=== PATIENT | female | born 1995 | race Caucasian/White ===

== ENCOUNTER 2016-07-28 09:48 | Observation (INO) | payer MEDICAID ==
[2016-07-28 10:23] VITALS: BP 120/76; PULSE 112
--- NOTE | 2016-07-28 12:20 | XRAY ---
Indication: IUGR. Ultrasound biophysical profile study performed. Comparison: July 21, 2016 There is again a single viable intrauterine with heart rate 139 bpm. Four-quadrant GAIL is 11.4 cm. This was previously 12.3 cm. Largest amniotic pocket is 3.3 cm. 2 points given for breathing, movements, tone, and qualitative amniotic fluid volume. Impression: Stable total biophysical profile score 8 out of 8.
== END 2016-07-28 11:10 | disposition home or self-care (01) ==
LOC: OB 09:48
PROVIDERS: ADMIT Family Medicine; ATTEND Family Medicine
DX: Z34.03 Encounter for supervision of normal first pregnancy, third trimester (principal)
CPT/HCPCS: 59025; 76819; G0378

== ENCOUNTER 2016-08-04 10:12 | Observation (INO) | payer MEDICAID ==
[2016-08-04 10:39] VITALS: BP 115/77; PULSE 102
--- NOTE | 2016-08-04 11:29 | XRAY ---
Indication: IUGR. Ultrasound biophysical profile study performed. Comparison: July 28, 2016 There is again a single viable intrauterine with heart rate 135 bpm. Four-quadrant GAIL is 10 cm. This was previously 11.4 cm. Largest amniotic pocket is 4.2 cm. 2 points given for breathing, movements, tone, and qualitative amniotic fluid volume. Impression: Stable total biophysical profile score 8 out of 8.
== END 2016-08-04 11:25 | disposition home or self-care (01) ==
LOC: MED SURG 10:12
PROVIDERS: ADMIT Family Medicine; ATTEND Family Medicine
DX: Z34.03 Encounter for supervision of normal first pregnancy, third trimester (principal)
CPT/HCPCS: 59025; 76819; G0378

== ENCOUNTER 2016-08-10 09:37 | Observation (INO) | payer MEDICAID ==
[2016-08-10 09:59] VITALS: BP 122/66; PULSE 100
--- NOTE | 2016-08-10 11:51 | XRAY ---
Indication: IUGR. Ultrasound biophysical profile study was performed. Comparison: August 04, 2016 Again there is a single viable intrauterine . heart rate 143 bpm. Four-quadrant GAIL is 12.7 cm, previously 10.0 cm. Largest amniotic pocket measures 4.3 cm. 2 points given for breathing, movements, tone, and qualitative amniotic fluid volume. Impression: Stable total biophysical profile score 8 out of 8.
== END 2016-08-10 10:50 | disposition home or self-care (01) ==
LOC: OB 09:37
PROVIDERS: ADMIT Family Medicine; ATTEND Family Medicine
DX: Z34.03 Encounter for supervision of normal first pregnancy, third trimester (principal)
CPT/HCPCS: 59025; 76819; 81000; G0378

== ENCOUNTER 2016-08-14 20:09 | Inpatient (IN) | payer BC, MEDICAID ==
[2016-08-14] MEDS ORDERED: BRETHINE 1 MG/ML SQ PRN (21:00)
[2016-08-14 21:50] LABS: BASOPHIL % 0.3 % (0.0-0.4); Eosinophil % 1.3 % (0.00-5.0); Granulocytes % 66.9 % (36.0-66.0); Lymphocytes % 22.5 % (24.0-44.0); Mean Cell Volume 88.1 fl (78-100); Mean Corpuscular Hemoglobin 28.8 pg (26-32); Mean Platelet Volume 10.9 fl (6-9.5); Platelet Count 246 K/mm3 (150-450); Red Blood Count 3.85 M/mm3 (4.1-5.4); Red Cell Distribution Width 13.1 % (11.5-14.0); White Blood Count 11.2 K/mm3 (4.0-10.5)
[2016-08-14] MEDS ORDERED: Cervidil 10 MG VAG SCH (22:00)
[2016-08-14] MEDS ORDERED: PITOCIN 30 UNITS/ LR 500 ML 500 ML IV SCH (22:00)
[2016-08-15] MEDS: Lactated Ringers 1,000 ML IV SCH ×2 (06:22→14:14)
[2016-08-15] MEDS ORDERED: PITOCIN 30 UNITS/ LR 500 ML 500 ML IV SCH (06:30)
[2016-08-15] MEDS ORDERED: OB EPIDURAL NAROPIN/SUFENTANIL IN NACL EPIDURAL PRN (10:49)
[2016-08-15] MEDS ORDERED: Lactated Ringers 1,000 ML IV ONE (10:49)
[2016-08-15] MEDS ORDERED: Ephedrine Sulfate 50 MG/ML IV PRN (10:49)
[2016-08-15 15:31] VITALS: O2SAT 98
[2016-08-15] MEDS ORDERED: XYLOCAINE 1% HCL 20 ML MDV ONE (18:51)
[2016-08-15] MEDS ORDERED: XYLOCAINE 1% HCL 20 ML MDV IJ PRN (19:00)
[2016-08-15] MEDS ORDERED: MOTRIN 400 MG PO PRN (20:13)
[2016-08-15] MEDS ORDERED: Rhogam Plus 300 MCG IM ONE (20:13)
[2016-08-15] MEDS ORDERED: Dulcolax 10 MG SUPP PR PRN (20:13)
[2016-08-15] MEDS ORDERED: TYLENOL EXTRA STRENGTH 500 MG PO PRN (20:13)
[2016-08-15] MEDS ORDERED: M-M-R II Vaccine With Diluent SQ ONE (20:13)
[2016-08-15] MEDS ORDERED: LANSINOH 40 GM TOP PRN (20:13)
[2016-08-15] MEDS ORDERED: Anucort-HC SUPPOSITORY PR PRN (20:13)
[2016-08-15] MEDS ORDERED: Ambien 10 MG PO PRN (20:13)
[2016-08-15] MEDS ORDERED: Mylicon 80MG PO PRN (20:13)
[2016-08-15] MEDS ORDERED: Restoril 15 MG PO PRN (20:13)
[2016-08-15] MEDS ORDERED: Tylenol #3 Tablet PO PRN (20:13)
[2016-08-15] MEDS ORDERED: CORTISONE 1% CREAM TP PRN (20:13)
[2016-08-15] MEDS: TUCKS TP PRN (20:25)
[2016-08-15] MEDS: Dermoplast Spray TP PRN (20:25)
[2016-08-15] MEDS ORDERED: Nubain 10 MG/ML IV PRN (21:12)
[2016-08-15] MEDS ORDERED: BENADRYL 50 MG/ML IV PRN (21:13)
[2016-08-15] MEDS: Colace 100 MG PO SCH (22:24)
[2016-08-16 05:56] LABS: Mean Cell Volume 89.5 fl (78-100); Mean Platelet Volume 10.7 fl (6-9.5); Platelet Count 212 K/mm3 (150-450); Red Blood Count 3.44 M/mm3 (4.1-5.4); Red Cell Distribution Width 13.4 % (11.5-14.0); White Blood Count 16.6 K/mm3 (4.0-10.5)
[2016-08-16 06:04] LABS: Mean Corpuscular Hemoglobin 28.7 pg (26-32)
[2016-08-16 07:00] LABS: BAND 1 % (0.0-2.0); Eosinophil 1 % (0.00-3.0); Platelet Estimate NORMAL (NORMAL); Total Cells Counted 100
[2016-08-16] MEDS: FERREX 150 PO SCH (10:37)
[2016-08-16] MEDS: Colace 100 MG PO SCH ×2 (10:37→21:18)
[2016-08-16] MEDS: TUCKS TP PRN (21:17)
[2016-08-16] MEDS: Dermoplast Spray TP PRN (21:17)
[2016-08-17] MEDS: FERREX 150 PO SCH (10:25)
[2016-08-17] MEDS: Colace 100 MG PO SCH ×2 (10:25→21:04)
[2016-08-17 20:40] VITALS: BP 126/76; PULSE 73
== END 2016-08-17 21:35 | disposition home or self-care (01) | DRG 775 ==
LOC: OB 20:52 → OBSVTOIN 08-15 06:59
PROVIDERS: ADMIT Family Medicine; ATTEND Family Medicine
PROC: 10E0XZZ Delivery of Products of Conception, External Approach (ICD-10-PCS; principal; 2016-08-15)
PROC: 10907ZC Drainage of Amniotic Fluid, Therapeutic from Products of Conception, Via Natural or Artificial Opening (ICD-10-PCS; 2016-08-15)
DX: O80 Encounter for full-term uncomplicated delivery (principal); Z3A.39 39 weeks gestation of pregnancy; Z37.0 Single live birth
CPT/HCPCS: 01967; 36415; 80307; 85025; 87086; 90471; 90707; 94799; G0378; J1200; J2590; J2790; J2795

== ENCOUNTER 2021-12-15 08:48 | Day surgery (SDC) | payer OTHER ==
--- NOTE | 2021-12-08 09:32 | HP ---
DATE OF SURGERY: 12/15/2021 HISTORY OF PRESENT ILLNESS: The patient is a 26-year-old female presents with right upper quadrant pain radiating to her back. She states that eating makes this worse. She states that six years ago this pain started. The patient had went to the emergency room once for this. A couple of weeks ago the patient had some pain that lasted for about 24 hours. She denies nausea, vomiting or diarrhea. PAST MEDICAL HISTORY: None. PAST SURGICAL HISTORY: [place] teeth. ALLERGIES: NKDA. MEDICATIONS: None. FAMILY HISTORY: Diabetes, thyroid cancer, breast cancer, cervical cancer. SOCIAL HISTORY: Occasional alcohol. REVIEW OF SYSTEMS: CONSTITUTIONAL: Denies fever or chills. CHEST: Denies shortness of breath. CVS: Denies chest pain. ABDOMEN: Reports abdominal pain. Denies nausea, vomiting, diarrhea, constipation or rectal bleeding. PHYSICAL EXAMINATION: GENERAL: No acute distress. CHEST: Nonlabored. No shortness of breath. CVS: Regular rate and rhythm. ABDOMEN: Soft, nontender. IMPRESSION: Symptomatic cholelithiasis. PLAN: Laparoscopic cholecystectomy with Dr. Venkatesh Larios. As dictated by Afua Morales NP.
[~2021-12-15 08:48] MED LIST: Lactated Ringers 1,000 ML IV ONE; Sensorcaine 0.25% 10 ML ONE
[2021-12-15] MEDS ORDERED: Ephedrine Sulfate 50 MG/ML IJ ONE (08:49)
[2021-12-15] MEDS ORDERED: MEFOXIN 2 GM PREMIX** 2 GM/50 ML ML IV ONE (09:05)
[2021-12-15] MEDS ORDERED: Lactated Ringers 1,000 ML IV ONE (09:06)
[2021-12-15] MEDS ORDERED: Versed 2 MG/2 ML Injection IV ONE (09:14)
[2021-12-15] MEDS ORDERED: Lactated Ringers 1,000 ML IV SCH (09:30)
[2021-12-15] MEDS ORDERED: MEFOXIN 2 GM PREMIX** 2 GM/50 ML ML IV SCH (10:00)
[2021-12-15] MEDS ORDERED: DIPRIVAN 200 MG/20 ML IV ONE ×2 (10:15→10:41)
[2021-12-15] MEDS ORDERED: Quelicin Fliptop 200 MG/10 ML ONE ×2 (10:41→11:07)
[2021-12-15] MEDS ORDERED: Zemuron 100 MG/10 ML ONE (10:41)
[2021-12-15] MEDS ORDERED: Xylocaine-Mpf 2% 5 Ml Vial ONE (10:41)
[2021-12-15] MEDS ORDERED: Decadron 4 MG INJ ONE (10:41)
[2021-12-15] MEDS ORDERED: Zofran 4 MG/2 ML VIAL ONE (10:41)
[2021-12-15] MEDS ORDERED: SUBLIMAZE 100 MCG/2 ML ONE ×3 (10:44→12:19)
[2021-12-15] MEDS ORDERED: OFIRMEV 100 ML IV ONE (11:00)
[2021-12-15] MEDS ORDERED: Pre-Attached Lta Kit TP ONE (11:00)
[2021-12-15] MEDS ORDERED: DEXMEDETOMIDINE 80 MCG/20ML-NS IV ONE (11:00)
[2021-12-15] MEDS ORDERED: ATROPINE SULFATE 1MG ONE (11:19)
[2021-12-15] MEDS ORDERED: TRANDATE 20 MG/4 ML SYRINGE IV ONE (11:34)
[2021-12-15] MEDS ORDERED: BRIDION 200MG/2ML IV ONE (11:52)
[2021-12-15] MEDS ORDERED: Hydromorphone 1 mg/ml Injection ONE (12:20)
--- NOTE | 2021-12-15 13:20 | OP ---
SURGERY DATE/TIME: 12/15/2021 1106 PREOPERATIVE DIAGNOSIS: Symptomatic cholelithiasis. POSTOPERATIVE DIAGNOSIS: Symptomatic cholelithiasis. PROCEDURE: Laparoscopic cholecystectomy. SURGEON: Dr. Venkatesh Larios. ANESTHESIA: General endotracheal tube. COMPLICATIONS: None. CONDITION: Stable. INDICATIONS: A patient with upper abdominal discomfort. Ultrasound positive. Seen, examined and procedure discussed. DESCRIPTION OF PROCEDURE AND FINDINGS: Taken to surgery. General anesthetic, routine prep and drape. Veress needle inserted. Opening pressure of 1, insufflating pressure 14. Four - 5 ports were placed. The gallbladder was large. It was thickened. Infundibulum dissected. It was fairly thick. Staying away from the common duct, the infundibulum and cystic junction identified. Staple was able to be placed at oblique angle immediately abutting the bottom edge of the gallbladder that had been dissected staying away from the zbigniew area. This was taken. It looked nice. Cystic duct was 2.5 mm with bile in the end of the staple line, well-sealed off. Gallbladder rolled out of gallbladder fossa. It was necessary to widen the upper hole as the gallbladder was 1 inch thick and had multiple large stones. No debris was spilled. The hole was widened. The gallbladder extracted along with the stones. The fascia closed with 0 Vicryl. The field was dry. CO2 exsufflated. Skin closed with 4-0 Vicryl and Steri-Strips. The patient tolerated the procedure satisfactorily.
[2021-12-15] MEDS ORDERED: NORCO 5/325 MG PO PRN (13:34)
[2021-12-15 14:06] VITALS: PULSE 79
[2021-12-15 14:19] VITALS: BP 148/96; O2SAT 98
== END 2021-12-15 14:30 | disposition home or self-care (01) ==
LOC: SDC 08:48
PROVIDERS: ATTEND Surgery
DX: K80.20 Calculus of gallbladder without cholecystitis without obstruction (principal)
CPT/HCPCS: 84703; J0330; J0461; J0694; J1100; J1170; J2250; J2405; J2704; J3010; A9270-GY